=== PATIENT | female | born 1980 | race African-American/Black ===

== ENCOUNTER 2024-02-26 19:36 | Emergency (ER) | payer OTHER ==
[~2024-02-26] VITALS: Ht 167.6 cm; Wt 130.9 kg
[2024-02-26 19:57] LABS: BASO # 0.03 K/mm3 (0.02-0.10); EOS # 0.09 K/mm3 (0.04-0.40); EOS % 0.8 % (1.0-5.0); HEMATOCRIT 36.5 % (37.0-47.0); HEMOGLOBIN 11.5 g/dL (12.5-16.0); MEAN CELL VOLUME 70 fl (78-100); MEAN CORPUSCULAR HEMOGLOBIN 22 pg (27-31); MEAN CORPUSCULAR HGB CONC 32 g/dL (33-37); MEAN PLATELET VOLUME 10.1 fl (7.4-10.4); MONO # 0.62 K/mm3 (0.20-0.80); NEU # 7.18 K/mm3 (1.40-6.50); PLATELET COUNT 369 K/mm3 (130-400); RED BLOOD COUNT 5.25 M/mm3 (4.10-5.30); WHITE BLOOD COUNT 10.6 K/mm3 (4.8-10.8)
[2024-02-26] MEDS ORDERED: NS 1,000 ML IV SCH (20:00)
[2024-02-26 20:05] LABS: CALCIUM 9.9 mg/dL (8.3-10.5)
[2024-02-26] MEDS ORDERED: HYDROCHLOROTH12.5 M1 PO (20:06)
[2024-02-26] MEDS ORDERED: OZEMPIC2 MG/0.75 SQ (20:06)
[2024-02-26] MEDS ORDERED: JARDIANCE25 MG PO (20:06)
[2024-02-26] MEDS ORDERED: PRAVASTATIN SOD20 MG PO (20:06)
[2024-02-26] MEDS ORDERED: METFORMIN ER500 MG (20:06)
[2024-02-26] MEDS ORDERED: LISINOPRIL20 MG PO (20:06)
[2024-02-26] MEDS ORDERED: GLIPIZIDE ER5 MG PO (20:06)
[2024-02-26 20:07] LABS: TOTAL PROTEIN 7.6 g/dL (6.4-8.3)
[2024-02-26 20:08] LABS: TOTAL BILIRUBIN 0.4 mg/dL (0.2-1.2)
[2024-02-26 21:38] LABS: URINE WBC 0 /hpf (0-3)
[2024-02-26 21:41] LABS: URINE APPEARANCE CLEAR (CLEAR); URINE COLOR YELLOW (YELLOW)
[2024-02-26 21:43] LABS: PH-URINE 5.5 (5.0 - 8.0); URINE BILIRUBIN NEGATIVE (NEGATIVE); URINE BLOOD NEGATIVE (NEGATIVE); URINE GLUCOSE 2+ (NEGATIVE); URINE KETONE NEGATIVE (NEGATIVE); URINE LEUKOCYTE ESTERASE NEGATIVE (NEGATIVE); URINE NITRATE NEGATIVE (NEGATIVE); URINE PROTEIN(semi-quant) NEGATIVE (NEGATIVE)
[2024-02-26 21:59] VITALS: BP 131/94
== END 2024-02-26 22:00 | disposition home or self-care (01) ==
LOC: ED 19:36
PROVIDERS: Nurse Practitioner
DX: I95.1 Orthostatic hypotension (principal); I10 Essential (primary) hypertension; E11.65 Type 2 diabetes mellitus with hyperglycemia; E86.0 Dehydration
CPT/HCPCS: J7030